=== PATIENT | female | born 1955 | race Caucasian/White ===

== ENCOUNTER 2020-05-11 13:41 | Inpatient (IN) ==
[2020-05-11] MEDS ORDERED: SODIUM CHLORIDE 0.9% 1000ML 1,000 ML IV ONE (14:03)
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
[2020-05-11 14:55] LABS: Basophils # (auto) 0.02 K/uL (0-0.2); Basophils % (auto) 0.1 %; Eosinophils # (auto) 0.04 K/uL (0-0.5); Eosinophils % (auto) 0.3 %; Hematocrit (blood only) 39.1 % (37-47); Hemoglobin 13.1 g/dL (12.0-16.0); Immature Granulocytes # (auto) 0.06 K/uL (0.00-0.02); Immature Granulocytes % (auto) 0.4 %; Lymphocytes # (auto) 1.08 K/uL (1.2-3.4); Lymphocytes % (auto) 7.7 %; Mean Corpuscular Hemoglobin 30.6 pg (25-34); Mean Corpuscular Hgb Conc 33.5 g/dL (32-36); Mean Corpuscular Volume 91.4 fL (80-100); Mean Platelet Volume 8.9 fL (7.4-10.4); Monocytes # (auto) 1.04 K/uL (0.11-0.59); Monocytes % (auto) 7.4 %; Neutrophils # (auto) 11.85 K/uL (1.4-6.5); Neutrophils % (auto) 84.1 %; Platelet Count 384 K/uL (130-400); RDW Coefficient of Variation 12.9 % (11.5-14.5); Red Blood Count 4.28 M/uL (4.2-5.4); White Blood Count 14.09 K/uL (4.8-10.8)
[2020-05-11 15:07] LABS: Partial Thromboplastin Ratio 0.8; Partial Thromboplastin Time 22.7 Seconds (21.0-31.0); Prothrombin Time 10.6 Seconds (9.0-12.0)
[2020-05-11 15:16] LABS: Alanine Aminotransferase 22 U/L (12-78); Albumin Level 3.3 gm/dl (3.4-5.0); Aspartate Aminotransferase 13 U/L (15-37); BUN Creatinine Ratio 40.2 (10-20); Blood Urea Nitrogen 39 mg/dl (7-18); Calcium 9.1 mg/dl (8.5-10.1); Carbon Dioxide 26 mmol/L (21-32); Chloride 102 mmol/L (98-107); Creatinine Clr Calc Pharmacy 44.5 ml/min; Est GFR (Non-African American) 60.4; Glucose 103 mg/dl (70-99); Lipase 197 U/L (73-393); Potassium 4.7 mmol/L (3.5-5.1); Sodium 134 mmol/L (136-145)
[2020-05-11 15:21] LABS: Albumin Globulin Ratio 0.8 (0.9-2); Alkaline Phosphatase 97 U/L (45-117); Bilirubin,Total 0.4 mg/dl (0.2-1); Total Protein 7.3 gm/dl (6.4-8.2); Troponin I < 0.015 ng/ml (0-0.045)
--- NOTE | 2020-05-11 15:33 | Electrocardiogram Report ---
Test Reason : Blood Pressure : / mmHG Vent. Rate : 080 BPM Atrial Rate : 080 BPM P-R Int : 172 ms QRS Dur : 072 ms QT Int : 380 ms P-R-T Axes : 089 072 086 degrees QTc Int : 438 ms Poor data quality, interpretation may be adversely affected Normal sinus rhythm Normal ECG No previous ECGs available Confirmed by Moshe Hickey ([id number]) on 05/11/2020 3:32:47 PM Referred By: REFERRED SELF Confirmed By:Mumtaz Hickey
[2020-05-11 16:40] LABS: Appearance Urine Clear (Clear); Bilirubin Urine Negative (Negative); Blood Urine Negative (Negative); Color Urine Yellow; Glucose Urine UA Negative (Negative); Ketones Urine Trace (Negative); Leukocyte Esterase Urine Negative (Negative); Nitrite Urine Negative (Negative); Protein Urine Negative (Negative); Specific Gravity Urine 1.018 (1.000-1.030); Urobilinogen Urine Negative (Negative); pH Urine 5.5 (4.5-7.5)
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
--- NOTE | 2020-05-11 22:11 | History & Physical Report ---
Date of Service May 11, 2020 Assessment & Plan (1) Generalized weakness: Generalized weakness/ambulatory dysfunction/frequent falls- No abnormalities noted on imaging or on laboratories. Consult PT/OT Patient has had decreased oral intake We will likely need an inpatient rehab stay Present on Admission?: Yes (2) Ambulatory dysfunction: See above Present on Admission?: Yes (3) Dehydration: Placed on NSS + KCl 20 mEq per hour Present on Admission?: Yes (4) COPD (chronic obstructive pulmonary disease): Continue usual inhalers Breo Ellipta and Spiriva Present on Admission?: Yes (5) Hypertension: Continue diltiazem HCl with hold parameters. Hold irbesartan and spironolactone Present on Admission?: Yes (6) Anxiety with depression: Continue clonazepam and paroxetine Present on Admission?: Yes History of Present Illness Chief Complaint: The patient presents to the emergency department with complaint of several falls over the past 2 weeks, and generalized weakness, especially weak in her legs. Primary Care Provider: NO PCP The patient is a 65-year-old female with a past medical history including anxiety, hypertension, COPD, and depression who presents to the ED with symptoms as noted above. She denies any history of head trauma or any specific joint injuries with her frequent falls. Work-up in the emergency department including CT scans of head, face and cervical spine all of which were negative. Chest x-ray is consistent with COPD and mild bibasilar interstitial lung disease. Allergies Allergy/AdvReac Type Severity Reaction Status Date / Time No Known Allergies Allergy Unverified 05/11/20 15:30 Home Medications Medication Instructions Recorded Confirmed Type albuterol sulfate [Ventolin HFA] 2 puff INHALATION Q6 PRN 05/11/20 05/11/20 History clonazepam [Klonopin] 0.25 mg PO TID 05/11/20 05/11/20 History diltiazem HCl 240 mg PO DAILY 05/11/20 05/11/20 History fluticasone furoate-vilanterol 1 ea INHALATION DAILY 05/11/20 05/11/20 History [Breo Ellipta] irbesartan 150 mg PO DAILY 05/11/20 05/11/20 History paroxetine HCl 10 mg PO HS 05/11/20 05/11/20 History spironolactone 25 mg PO DAILY 05/11/20 05/11/20 History tiotropium bromide [Spiriva 2 puff INHALATION QAM 05/11/20 05/11/20 History Respimat] Past Med/Surg History Medical History (Updated 05/11/20 @ 23:59 by Riley David MD) Anxiety with depression COPD (chronic obstructive pulmonary disease) Hypertension Social History Smoking Status: Former smoker Hx Alcohol Use: No Hx Substance Use: No Preferred Language: Belarusian Communication Ability: Effective Captain Of Guards Required: No Beliefs That Will Affect Care: None Current Living Situation: Other Current Living Situation Comment: Friend Feels Safe at Home: Yes Safety Concerns: Feels Safe At This Time Assistive Devices: Oxygen - Continuous and Walker Review of Systems Review of Systems: The patient denies chest pain, palpitations, shortness of breath, dyspnea on exertion, cough, lower extremity swelling, sore throat, fevers, chills, sweats, nausea, vomiting, diarrhea , constipation, abdominal pain, pelvic pain, blood in urine or stool, dysuria, urinary frequency or urgency, memory loss, loss of consciousness, rash, abnormal bruising or bleeding, focal weakness, numbness or tingling in arms or legs, generalized arthralgias or myalgias, back or neck pain, or night sweats. The review of systems is otherwise negative other than for that already noted above, and at least 10 systems have been reviewed. Physical Exam Physical Exam: The patient is awake, alert and oriented 3, well developed and well nourished, bruises around eyes and maxillary ridge bilaterally, lying in bed and in no acute distress. HEENT--PERRL, EOMI, mucous membranes and oropharynx dry. Neck--supple. No JVD. No bruits. Thyroid normal, trachea midline, no adenopathy. Heart--normal S1 and S2. No murmurs, rubs or gallops. Lungs--clear bilaterally, no respiratory distress, no accessory muscle use. Abdomen--normal bowel sounds and soft. Nontender. Nondistended, no hernias or masses, no organomegaly. Extremities--no cyanosis or clubbing. No edema. Dermatologic--normal skin turgor, normal color, no abnormal lymph nodes, no rash. Neurologic--cranial nerves II through XII grossly intact. Rheumatologic--normal range of motion. Psychiatric--normal affect. Results & Data Results & Data ([facility]) Vital Signs (Past 12 Hours) Vital Signs Temp Pulse Pulse Resp BP BP Pulse Ox 05/11/20 22:05 86 20 117/79 96 05/11/20 20:37 94 H 20 115/80 96 05/11/20 19:05 94 H 20 115/80 100 05/11/20 16:10 86 23 100 05/11/20 16:01 77 21 100 05/11/20 16:00 75 21 120/80 100 05/11/20 15:50 79 22 100 05/11/20 15:40 87 17 100 05/11/20 15:31 79 26 H 100 05/11/20 15:30 81 19 127/81 100 05/11/20 15:20 77 20 100 05/11/20 15:10 80 19 100 05/11/20 15:01 82 24 100 05/11/20 15:00 77 17 123/78 100 05/11/20 14:50 81 24 99 05/11/20 14:49 85 25 H 128/78 99 05/11/20 14:40 92 H 16 98 05/11/20 14:30 82 26 H 99 05/11/20 14:20 86 23 99 05/11/20 14:10 91 H 26 H 99 05/11/20 14:00 97.9 F 93 H 24 125/86 98 05/11/20 13:59 94 H 27 H 98 05/11/20 13:45 96 H 24 125/86 98 Laboratory Results Laboratory Results WBC 14.09 K/uL (4.8-10.8) H 05/11/20 14:46 RBC 4.28 M/uL (4.2-5.4) 05/11/20 14:46 Hgb 13.1 g/dL (12.0-16.0) 05/11/20 14:46 Hct 39.1 % (37-47) 05/11/20 14:46 MCV 91.4 fL (80-100) 05/11/20 14:46 MCH 30.6 pg (25-34) 05/11/20 14:46 MCHC 33.5 g/dL (32-36) 05/11/20 14:46 RDW Std Deviation 43.0 fL (36.4-46.3) 05/11/20 14:46 RDW Coeff of Artie 12.9 % (11.5-14.5) 05/11/20 14:46 Plt Count 384 K/uL (130-400) 05/11/20 14:46 MPV 8.9 fL (7.4-10.4) 05/11/20 14:46 Immature Gran % (Auto) 0.4 % 05/11/20 14:46 Neut % (Auto) 84.1 % 05/11/20 14:46 Lymph % (Auto) 7.7 % 05/11/20 14:46 Bledsoe % (Auto) 7.4 % 05/11/20 14:46 Eos % (Auto) 0.3 % 05/11/20 14:46 Baso % (Auto) 0.1 % 05/11/20 14:46 Neut # (Auto) 11.85 K/uL (1.4-6.5) H 05/11/20 14:46 Lymph # (Auto) 1.08 K/uL (1.2-3.4) L 05/11/20 14:46 Bledsoe # (Auto) 1.04 K/uL (0.11-0.59) H 05/11/20 14:46 Eos # (Auto) 0.04 K/uL (0-0.5) 05/11/20 14:46 Baso # (Auto) 0.02 K/uL (0-0.2) 05/11/20 14:46 Immature Gran # (Auto) 0.06 K/uL (0.00-0.02) H 05/11/20 14:46 PT 10.6 Seconds (9.0-12.0) 05/11/20 14:46 INR 1.0 (0.9-1.1) 05/11/20 14:46 APTT 22.7 Seconds (21.0-31.0) 05/11/20 14:46 PTT Ratio 0.8 05/11/20 14:46 Sodium 134 mmol/L (136-145) L 05/11/20 14:46 Potassium 4.7 mmol/L (3.5-5.1) 05/11/20 14:46 Chloride 102 mmol/L (98-107) 05/11/20 14:46 Carbon Dioxide 26 mmol/L (21-32) 05/11/20 14:46 Anion Gap 6.0 (3-11) 05/11/20 14:46 BUN 39 mg/dl (7-18) H 05/11/20 14:46 Creatinine 0.97 mg/dl (0.6-1.2) 05/11/20 14:46 Est Cr Clr Drug Dosing 44.5 ml/min 05/11/20 14:46 Est GFR ( Amer) 70.0 05/11/20 14:46 Est GFR (Non-Af Amer) 60.4 05/11/20 14:46 BUN/Creatinine Ratio 40.2 (10-20) H 05/11/20 14:46 Glucose 103 mg/dl (70-99) H 05/11/20 14:46 Calcium 9.1 mg/dl (8.5-10.1) 05/11/20 14:46 Total Bilirubin 0.4 mg/dl (0.2-1) 05/11/20 14:46 AST 13 U/L (15-37) L 05/11/20 14:46 ALT 22 U/L (12-78) 05/11/20 14:46 Alkaline Phosphatase 97 U/L (45-117) 05/11/20 14:46 Troponin I < 0.015 ng/ml (0-0.045) 05/11/20 14:46 Total Protein 7.3 gm/dl (6.4-8.2) 05/11/20 14:46 Albumin 3.3 gm/dl (3.4-5.0) L 05/11/20 14:46 Globulin 4.0 gm/dl (2.5-4.0) 05/11/20 14:46 Albumin/Globulin Ratio 0.8 (0.9-2) L 05/11/20 14:46 Lipase 197 U/L (73-393) 05/11/20 14:46 Urine Color Yellow 05/11/20 14:46 Urine Appearance Clear (Clear) 05/11/20 14:46 Urine pH 5.5 (4.5-7.5) 05/11/20 14:46 Ur Specific [place] 1.018 (1.000-1.030) 05/11/20 14:46 Urine Protein Negative (Negative) 05/11/20 14:46 Urine Glucose (UA) Negative (Negative) 05/11/20 14:46 Urine Ketones Trace (Negative) H 05/11/20 14:46 Urine Blood Negative (Negative) 05/11/20 14:46 Urine Nitrite Negative (Negative) 05/11/20 14:46 Urine Bilirubin Negative (Negative) 05/11/20 14:46 Urine Urobilinogen Negative (Negative) 05/11/20 14:46 Ur Leukocyte Esterase Negative (Negative) 05/11/20 14:46 COVID-19 Eval Order Covid19 IDNow On license of [facility] 05/11/20 18:37 SARS-CoV-2, RNA, NAAT NEGATIVE (NEGATIVE) 05/11/20 18:37 Diagnostic Findings [facility], [phone] CT Scan Report Patient: ANT OZUNA IAdmit Date: 05/11/20MR#: [id number]: [address] AAcct ID:[id number]: Date: [address] [place] [address] Zip: [place], [place] [address]Zak: 65Location: EDSex: FRoom/Bed:Att Phy:Diagnosis: WEAKNESSPri Phy: PCP,NOService Date: 05/11/20Fam Phy:Interpreting Phy: Fracisco Asher MDAdmit Phy: Ordering Phy: Hardy Eaton DO cc: ~ CT OF THE CERVICAL SPINE CLINICAL HISTORY: Neck pain status post trauma COMPARISON STUDY: No previous studies for comparison. CT DOSE: 1846.72 mGy.cm TECHNIQUE: CT scan of the cervical spine was performed from the skull base to the thoracic inlet. Images are reviewed in the axial, sagittal, and coronal planes. IV contrast was not administered for this examination. A dose lowering technique was utilized adhering to the principles of ALARA. FINDINGS: The visualized portions of the lung apices reveal no evidence of pneumothorax. The prevertebral soft tissues are normal. No fractures or subluxations are visualized. There is straightening of normal cervical lordosis. There are multilevel degenerative changes. There are C1 sclerotic foci statistically representing bone islands. IMPRESSION: No evidence of acute fracture or traumatic subluxation. ACT 112: Negative or not required by law. Electronically signed by: Fracisco Asher M.D. 05/11/2020 4:48 PM Dictated: 05/11/20 1645Transcribed: 05/11/20 1647 [facility], [phone] XRay Report Patient: ANT OZUNA Date: 05/11/20MR#: [id number]: [address] [facility] [address] AAcct ID:[id number]: Date: [address] [place] [address] Zip: [place] [address]Ipv: [id number]: EDSex: FRoom/Bed:Att Phy:Diagnosis: WEAKNESSPri Phy: PCP,NOService Date: 05/11/20Fam Phy:Interpreting Phy: Fracisco Asher MDAdmit Phy: Ordering Phy: Hardy Eaton DO cc: ~ XR chest 1V portable CLINICAL HISTORY: Atypical chest pain TRAUMA, CONFUSION, WEAKNESS COMPARISON STUDY: No previous studies for comparison. FINDINGS: The heart is normal in size. The patient is hyperinflated. There is pulmonary emphysema. There is mild interstitial thickening at the lung bases a finding which in part be due to pulmonary vascular redistribution given the upper lobe emphysema there are no large pleural effusions. There is no pneumothorax. Arthritic changes are present within the right shoulder.[ IMPRESSION: 1. Pulmonary emphysema 2. No evidence of pneumothorax 3. Mild basilar interstitial thickening ACT 112: Negative or not required by law. Electronically signed by: Fracisco Asher M.D. 05/11/2020 2:17 PM Dictated: 05/11/20 141Transcribed: 05/11/20 141 [facility], [phone] CT Scan Report Patient: ANT OZUNA Date: 05/11/20MR#: [id number]: [address] [facility] [address] AAcct ID:[id number]: Date: [address] [place] [address] Zip: [place] [address]Rma: [id number]: EDSex: FRoom/Bed:Att Phy:Diagnosis: WEAKNESSPri Phy: PCP,NOService Date: 05/11/20Fam Phy:Interpreting Phy: Diego Almodovar MDAdmit Phy: Ordering Phy: Hardy Eaton DO cc: ~ MAXILLOFACIAL CT WITHOUT CONTRAST CLINICAL HISTORY: facial trauma COMPARISON STUDY: None. TECHNIQUE: A maxillofacial CT was performed without IV contrast. Coronal and sagittal reformats were viewed. Automated exposure control was utilized for the study. A dose lowering technique was utilized adhering to the principles of ALARA. FINDINGS: Globes are intact. There is no retrobulbar hematoma. Alignment of the temporomandibular joints is anatomic. No acute facial fracture is identified. Orbital floors are intact. No skull base fracture is identified. The head CT will be reported separately. IMPRESSION: No acute facial fracture. ACT 112: Negative or not required by law. Electronically signed by: Diego Almodovar M.D. 05/11/2020 4:51 PM Dictated: 05/11/201646Transcribed: 05/11/201646 [facility], [phone] CT Scan Report Patient: ANT OZUNA IAdmit Date: 05/11/20MR#: [id number]: [address] [facility] [address] AAcct ID:[id number]: Date: [address] [place] [address] Zip: [place], [place] [address]Unv: 65Location: EDSex: FRoom/Bed:Att Phy:Diagnosis: WEAKNESSPri Phy: PCP,NOService Date: 05/11/20Fa Phy:Interpreting Phy: Fracisco Asher MDAdmit Phy: Ordering Phy: Hardy Eaton DO cc: ~ CT head/brain wo con CLINICAL HISTORY: Head pain status post trauma COMPARISON STUDY: No previous studies for comparison. TECHNIQUE: Axial CT of the brain is performed from the vertex to the skull base. IV contrast was not administered for this examination. A dose lowering technique was utilized adhering to the principles of ALARA. CT DOSE: FINDINGS: No intra or extra-axial mass lesions are visualized. There is no CT evidence of acute cortical infarction. There is no evidence of midline shift. There is no acute hemorrhage. No calvarial fractures are visualized. There are minor white matter hypodensities likely on a small vessel basis. There is no evidence of pathologic ventricular dilatation. There is no evidence of acute sinusitis. C1 sclerotic foci while nonspecific likely represent bone islands IMPRESSION: No acute intracranial findings ACT 112: Negative or not required by law. Electronically signed by: Fracisco Asher M.D. 05/11/2020 4:47 PM Dictated: 05/11/202Transcribed: 05/11/20 1644 Code Status & VTE Plan Code Status Full code VTE Prophylaxis Plan VTE Prophylaxis will be ordered: Yes PG Care Time/CCT Total # of Minutes Spent Total Time Spent with Patient: Total time spent is greater than 50% in coordination of care (as documented) at patient's floor/unit and/or counseling patient: Coding Level of Care Code 35386 OBS Care - Level 3 Diagnoses Generalized weakness R53.1 Ambulatory dysfunction R26.2 Dehydration E86.0 COPD (chronic obstructive pulmonary disease) J44.9 Hypertension I10 Anxiety with depression F41.8
[2020-05-12] MEDS ORDERED: ONDANSETRON INJ 2 MG/ML 2 ML VIAL IV PRN (00:47)
[2020-05-12] MEDS ORDERED: MAGNESIUM HYDROXIDE SUSP 30 ML UDC PO PRN (00:47)
[2020-05-12] MEDS ORDERED: ALUMINUM/MAGNESIUM SUSP 30 ML UDC PO PRN (00:47)
[2020-05-12] MEDS ORDERED: ACETAMINOPHEN 325 MG TAB PO PRN (00:47)
[2020-05-12] MEDS ORDERED: NSS + 20MEQ KCL 20 MEQ/1,000 ML BAG IV SCH (01:00)
[2020-05-12] MEDS: HEPARIN SOD 5,000 UNIT/0.5 ML VIAL SQ SCH ×2 (08:08→20:52)
[2020-05-12] MEDS: clonazePAM 0.25 MG TAB PO SCH ×3 (08:13→20:46)
[2020-05-12] MEDS: IRBESARTAN 150 MG TAB PO SCH (08:20)
[2020-05-12] MEDS: FLUTICASONE/VILANTEROL 200/25MCG 14 PUFFS/INHALER INH SCH (08:28)
[2020-05-12] MEDS: UMECLIDINIUM BROMIDE 62.5MCG/BLISTER 7 PUFFS/INHALER INH SCH (08:28)
[2020-05-12] MEDS ORDERED: Nursing to Pharmacy Communication SCH (08:30)
[2020-05-12] MEDS ORDERED: dilTIAZem HCL 240 MG CAPCR PO SCH (09:00)
--- NOTE | 2020-05-12 09:16 | Hospitalist Progress Note ---
Date of Service May 12, 2020 Assessment & Plan (1) Generalized weakness: Admitted for generalized weakness/ambulatory dysfunction/frequent falls in setting of poor intake and lack of self care. Son called EMS as patient unable to care for herself. Lives with roommate recently d/c on 302 and she states helps her at home No abnormalities noted on imaging or on laboratories. IVF NS @100cc/hr for dehydration, improved from admission Intake improved while inpatient TSH wnl Lyme negative. CK wnl 33 UA without evidence of infection WBC trending down, patient has been afebrile. No s/sx infection B12 low normal -- place on replacement PT/OT consulted - PT with rec for SNF. Alerted CM. Patient agreeable to [facility] but will await further eval (2) Ambulatory dysfunction: See above (3) Dehydration: IVF as above Bun/cr improving but still elevated continue to hold irbesartan but resumed spironolactone given elevated BP this morning BMP in AM (4) COPD (chronic obstructive pulmonary disease): Continue usual inhalers Breo Ellipta and Spiriva 99% on 2L -- patient on 2L chronically at baseline No respiratory issues at this time CXR without acute process Continue to monitor (5) Hypertension: Continue diltiazem HCl with hold parameters. Hold irbesartan as above for dehydration Spironolactone resumed for BP 145/88 Continue to monitor (6) Anxiety with depression: Continue clonazepam and paroxetine States stable at this time Hyponatremia Na 132 on Am labs IVF as above BMP in AM DVT Prophylaxis Heparin SQ Dispo: continued inpatient stay changed to full admission likely will need SNF at discharge Admission and Anticipated Discharge Date Admission Date: May 11, 2020 Subjective Patient evaluated around lunch. Tolerating diet as ordered. Had fall about a weak ago and hit her head. CT without acute findings. She notes that she has a roommate that was discharged on 302 and could help her at home, but we discussed safety given repeated falls and wound benefit from short term rehab. Discussed will have CM stop by and provide options for various locations prior to sending referral. Has not been seen by PT/OT yet. She notes she had not been eating or drinking much prior to admission, and she notes this was primarily related to access to food/water. She then got further dehydrated and noted weakness in her legs. She has been pushing fluids. Her IV is infiltrated currently and nursing to replace. On chronic O2 at 2 L and wears O2 via NC at night with humidified oxygen. No fevers, chills, chest pain, shortness of breath, cough, change in sputum color, nausea, vomiting, increased anxiety or other problem reported. No headache or visual changes. Will continue her diltiazem which she takes in the afternoon and already ordered. Will also resume her spironolactone later today for elevated BP and improvement of dehydration on labs, however will hold her irbesartan still given still slightly dehydrated. Questions/concerns addressed at this time. Review of Systems Review of Systems: All systems reviewed & are unremarkable except as noted in HPI & below Physical Exam Constitutional: well developed, + ill appearing (chronically ill appear, hair disheveled, b/l bruising to maxillary ridge) and comfortable; no acute distress Eyes: + anicteric sclerae and PERRL ENMT: dry mm Neck: normal visual inspection and trachea midline Respiratory: normal respiratory effort and able to speak in complete sentences; no respiratory distress, no labored breathing and no cough Auscultation: + diminished lung sounds (throughout) and + wheezes (faint, posterior); no crackles Cardiovascular: Rate/Rhythm: regular rate and regular rhythm Vessels: no JVD Extremities: no edema Gastrointestinal (Abdomen): normal bowel sounds, soft, nontender, no hepatosplenomegaly Musculoskeletal: moves all extremities Skin: cool, dry Neurologic: patellar DTR's 2+ bilat, sensation intact and PERRL, EOMI, accommodation nl, no face palsy, no dysarthria Psychiatric: Orientation: alert and oriented x 3 Lymphatic: no cervical or axillary lymphadenopathy Results & Data Results & Data ([facility]) Vital Signs (Past 12 Hours) Vital Signs Temp Pulse Pulse Resp BP Pulse Ox 05/12/20 07:00 36.5 C 93 H 16 145/88 H 99 05/11/20 23:47 36.2 C L 88 16 137/90 97 05/11/20 23:19 82 20 110/71 94 05/11/20 22:05 86 20 117/79 96 Laboratory Results 05/12/20 05/12/20 05/12/20 Range/Units 13:07 13:07 13:07 WBC (4.8-10.8) K/uL RBC (4.2-5.4) M/uL Hgb (12.0-16.0) g/dL Hct (37-47) % MCV (80-100) fL MCH (25-34) pg MCHC (32-36) g/dL RDW Std Deviation (36.4-46.3) fL RDW Coeff of Artie (11.5-14.5) % Plt Count (130-400) K/uL MPV (7.4-10.4) fL Immature Gran % (Auto) % Neut % (Auto) % Lymph % (Auto) % Bowie % (Auto) % Eos % (Auto) % Baso % (Auto) % Neut # (Auto) (1.4-6.5) K/uL Lymph # (Auto) (1.2-3.4) K/uL Bowie # (Auto) (0.11-0.59) K/uL Eos # (Auto) (0-0.5) K/uL Baso # (Auto) (0-0.2) K/uL Immature Gran # (Auto) (0.00-0.02) K/uL Sodium (136-145) mmol/L Potassium (3.5-5.1) mmol/L Chloride (98-107) mmol/L Carbon Dioxide (21-32) mmol/L Anion Gap (3-11) BUN (7-18) mg/dl Creatinine (0.6-1.2) mg/dl Est Cr Clr Drug Dosing ml/min Est GFR ( Amer) Est GFR (Non-Af Amer) BUN/Creatinine Ratio (10-20) Glucose (70-99) mg/dl Calcium (8.5-10.1) mg/dl Total Bilirubin (0.2-1) mg/dl AST (15-37) U/L ALT (12-78) U/L Alkaline Phosphatase (45-117) U/L Lactate Dehydrogenase 178 (84-246) U/L Total Creatine Kinase (26-192) U/L Total Protein (6.4-8.2) gm/dl Albumin (3.4-5.0) gm/dl Globulin (2.5-4.0) gm/dl Albumin/Globulin Ratio (0.9-2) Vitamin B12 210 (193-986) pg/ml TSH 1.050 (0.300-4.500) uIu/ml Urine Color Urine Appearance (Clear) Urine pH (4.5-7.5) Ur Specific Osborn (1.000-1.030) Urine Protein (Negative) Urine Glucose (UA) (Negative) Urine Ketones (Negative) Urine Blood (Negative) Urine Nitrite (Negative) Urine Bilirubin (Negative) Urine Urobilinogen (Negative) Ur Leukocyte Esterase (Negative) Lyme Disease IgG Ab (Negative) Lyme Disease IgM Ab (Negative) COVID-19 Eval Order SARS-CoV-2, RNA, NAAT (NEGATIVE) 05/12/20 05/12/20 05/12/20 Range/Units 08:44 08:44 08:44 WBC 13.08 H (4.8-10.8) K/uL RBC 4.18 L (4.2-5.4) M/uL Hgb 12.9 (12.0-16.0) g/dL Hct 38.4 (37-47) % MCV 91.9 (80-100) fL MCH 30.9 (25-34) pg MCHC 33.6 (32-36) g/dL RDW Std Deviation 43.2 (36.4-46.3) fL RDW Coeff of Artie 12.8 (11.5-14.5) % Plt Count 384 (130-400) K/uL MPV 9.2 (7.4-10.4) fL Immature Gran % (Auto) 0.3 % Neut % (Auto) 88.2 % Lymph % (Auto) 6.7 % Bowie % (Auto) 4.1 % Eos % (Auto) 0.5 % Baso % (Auto) 0.2 % Neut # (Auto) 11.55 H (1.4-6.5) K/uL Lymph # (Auto) 0.87 L (1.2-3.4) K/uL Bowie # (Auto) 0.53 (0.11-0.59) K/uL Eos # (Auto) 0.06 (0-0.5) K/uL Baso # (Auto) 0.03 (0-0.2) K/uL Immature Gran # (Auto) 0.04 H (0.00-0.02) K/uL Sodium 132 L (136-145) mmol/L Potassium 4.8 (3.5-5.1) mmol/L Chloride 102 (98-107) mmol/L Carbon Dioxide 25 (21-32) mmol/L Anion Gap 5.0 (3-11) BUN 27 H (7-18) mg/dl Creatinine 0.69 (0.6-1.2) mg/dl Est Cr Clr Drug Dosing 62.6 ml/min Est GFR ( Amer) 104.4 Est GFR (Non-Af Amer) 90.1 BUN/Creatinine Ratio 38.8 H (10-20) Glucose 108 H (70-99) mg/dl Calcium 9.1 (8.5-10.1) mg/dl Total Bilirubin 0.5 (0.2-1) mg/dl AST 12 L (15-37) U/L ALT 21 (12-78) U/L Alkaline Phosphatase 91 (45-117) U/L Lactate Dehydrogenase (84-246) U/L Total Creatine Kinase 33 (26-192) U/L Total Protein 6.9 (6.4-8.2) gm/dl Albumin 3.1 L (3.4-5.0) gm/dl Globulin 3.7 (2.5-4.0) gm/dl Albumin/Globulin Ratio 0.8 L (0.9-2) Vitamin B12 (193-986) pg/ml TSH (0.300-4.500) uIu/ml Urine Color Urine Appearance (Clear) Urine pH (4.5-7.5) Ur Specific Osborn (1.000-1.030) Urine Protein (Negative) Urine Glucose (UA) (Negative) Urine Ketones (Negative) Urine Blood (Negative) Urine Nitrite (Negative) Urine Bilirubin (Negative) Urine Urobilinogen (Negative) Ur Leukocyte Esterase (Negative) Lyme Disease IgG Ab Negative (Negative) Lyme Disease IgM Ab Negative (Negative) COVID-19 Eval Order SARS-CoV-2, RNA, NAAT (NEGATIVE) 05/11/20 05/11/20 05/11/20 Range/Units 18:37 18:37 14:46 WBC (4.8-10.8) K/uL RBC (4.2-5.4) M/uL Hgb (12.0-16.0) g/dL Hct (37-47) % MCV (80-100) fL MCH (25-34) pg MCHC (32-36) g/dL RDW Std Deviation (36.4-46.3) fL RDW Coeff of Artie (11.5-14.5) % Plt Count (130-400) K/uL MPV (7.4-10.4) fL Immature Gran % (Auto) % Neut % (Auto) % Lymph % (Auto) % Bowie % (Auto) % Eos % (Auto) % Baso % (Auto) % Neut # (Auto) (1.4-6.5) K/uL Lymph # (Auto) (1.2-3.4) K/uL Bowie # (Auto) (0.11-0.59) K/uL Eos # (Auto) (0-0.5) K/uL Baso # (Auto) (0-0.2) K/uL Immature Gran # (Auto) (0.00-0.02) K/uL Sodium (136-145) mmol/L Potassium (3.5-5.1) mmol/L Chloride (98-107) mmol/L Carbon Dioxide (21-32) mmol/L Anion Gap (3-11) BUN (7-18) mg/dl Creatinine (0.6-1.2) mg/dl Est Cr Clr Drug Dosing ml/min Est GFR ( Amer) Est GFR (Non-Af Amer) BUN/Creatinine Ratio (10-20) Glucose (70-99) mg/dl Calcium (8.5-10.1) mg/dl Total Bilirubin (0.2-1) mg/dl AST (15-37) U/L ALT (12-78) U/L Alkaline Phosphatase (45-117) U/L Lactate Dehydrogenase (84-246) U/L Total Creatine Kinase (26-192) U/L Total Protein (6.4-8.2) gm/dl Albumin (3.4-5.0) gm/dl Globulin (2.5-4.0) gm/dl Albumin/Globulin Ratio (0.9-2) Vitamin B12 (193-986) pg/ml TSH (0.300-4.500) uIu/ml Urine Color Yellow Urine Appearance Clear (Clear) Urine pH 5.5 (4.5-7.5) Ur Specific Osborn 1.018 (1.000-1.030) Urine Protein Negative (Negative) Urine Glucose (UA) Negative (Negative) Urine Ketones Trace H (Negative) Urine Blood Negative (Negative) Urine Nitrite Negative (Negative) Urine Bilirubin Negative (Negative) Urine Urobilinogen Negative (Negative) Ur Leukocyte Esterase Negative (Negative) Lyme Disease IgG Ab (Negative) Lyme Disease IgM Ab (Negative) COVID[facility]19 Eval [facility] SARS-CoV-2, RNA, NAAT NEGATIVE (NEGATIVE) PG Care Time/CCT Total # of Minutes Spent Total Time Spent with Patient: Total time spent is greater than 50% in coordination of care (as documented) at patient's floor/unit and/or counseling patient: Coding Level of Care Code 88139 Subseq Hosp Care Lvl 2 Diagnoses Generalized weakness R53.1 Ambulatory dysfunction R26.2 Dehydration E86.0 COPD (chronic obstructive pulmonary disease) J44.9 Hypertension I10 Anxiety with depression F41.8
[2020-05-12 09:21] LABS: Basophils # (auto) 0.03 K/uL (0-0.2); Basophils % (auto) 0.2 %; Eosinophils # (auto) 0.06 K/uL (0-0.5); Eosinophils % (auto) 0.5 %; Hematocrit (blood only) 38.4 % (37-47); Hemoglobin 12.9 g/dL (12.0-16.0); Immature Granulocytes # (auto) 0.04 K/uL (0.00-0.02); Immature Granulocytes % (auto) 0.3 %; Lymphocytes # (auto) 0.87 K/uL (1.2-3.4); Lymphocytes % (auto) 6.7 %; Mean Corpuscular Hemoglobin 30.9 pg (25-34); Mean Corpuscular Hgb Conc 33.6 g/dL (32-36); Mean Corpuscular Volume 91.9 fL (80-100); Mean Platelet Volume 9.2 fL (7.4-10.4); Monocytes # (auto) 0.53 K/uL (0.11-0.59); Monocytes % (auto) 4.1 %; Neutrophils # (auto) 11.55 K/uL (1.4-6.5); Neutrophils % (auto) 88.2 %; Platelet Count 384 K/uL (130-400); RDW Coefficient of Variation 12.8 % (11.5-14.5); RDW Standard Deviation 43.2 fL (36.4-46.3); Red Blood Count 4.18 M/uL (4.2-5.4); White Blood Count 13.08 K/uL (4.8-10.8)
[2020-05-12 09:28] LABS: Albumin Level 3.1 gm/dl (3.4-5.0); BUN Creatinine Ratio 38.8 (10-20); Calcium 9.1 mg/dl (8.5-10.1); Creatinine Clr Calc Pharmacy 62.6 ml/min; Est GFR (African American) 104.4; Est GFR (Non-African American) 90.1; Potassium 4.8 mmol/L (3.5-5.1)
[2020-05-12 09:38] LABS: Albumin Globulin Ratio 0.8 (0.9-2); Bilirubin,Total 0.5 mg/dl (0.2-1); Globulin 3.7 gm/dl (2.5-4.0); Total Protein 6.9 gm/dl (6.4-8.2)
[2020-05-12 10:01] LABS: Lyme Ab IgG w/WB Rflx Negative (Negative); Lyme Ab IgM w/WB Rflx Negative (Negative)
[2020-05-12] MEDS: SODIUM CHLORIDE 0.9% 1000ML 1,000 ML IV SCH ×2 (10:10→20:51)
[2020-05-12] MEDS: dilTIAZem HCL 240 MG CAPCR PO SCH (15:53)
[2020-05-12] MEDS: SPIRONOLACTONE 25 MG TAB PO SCH (15:53)
[2020-05-12] MEDS: PARoxetine HCL 10 MG TAB PO SCH (20:46)
[2020-05-13 06:15] LABS: Basophils # (auto) 0.02 K/uL (0-0.2); Basophils % (auto) 0.1 %; Eosinophils # (auto) 0.12 K/uL (0-0.5); Eosinophils % (auto) 0.9 %; Hemoglobin 12.2 g/dL (12.0-16.0); Immature Granulocytes # (auto) 0.04 K/uL (0.00-0.02); Immature Granulocytes % (auto) 0.3 %; Lymphocytes # (auto) 0.75 K/uL (1.2-3.4); Lymphocytes % (auto) 5.6 %; Mean Corpuscular Hgb Conc 33.9 g/dL (32-36); Mean Corpuscular Volume 91.6 fL (80-100); Mean Platelet Volume 9.1 fL (7.4-10.4); Monocytes # (auto) 0.89 K/uL (0.11-0.59); Monocytes % (auto) 6.6 %; Neutrophils # (auto) 11.57 K/uL (1.4-6.5); Neutrophils % (auto) 86.5 %; Platelet Count 335 K/uL (130-400); RDW Coefficient of Variation 12.8 % (11.5-14.5); RDW Standard Deviation 43.4 fL (36.4-46.3); Red Blood Count 3.93 M/uL (4.2-5.4); White Blood Count 13.39 K/uL (4.8-10.8)
[2020-05-13] MEDS: SODIUM CHLORIDE 0.9% 1000ML 1,000 ML IV SCH ×2 (06:33→17:09)
[2020-05-13 06:52] LABS: BUN Creatinine Ratio 25.1 (10-20); Calcium 8.2 mg/dl (8.5-10.1); Creatinine Clr Calc Pharmacy 73.2 ml/min; Est GFR (African American) 109.9; Est GFR (Non-African American) 94.8
[2020-05-13] MEDS: UMECLIDINIUM BROMIDE 62.5MCG/BLISTER 7 PUFFS/INHALER INH SCH (08:23)
[2020-05-13] MEDS: FLUTICASONE/VILANTEROL 200/25MCG 14 PUFFS/INHALER INH SCH (08:23)
[2020-05-13] MEDS: HEPARIN SOD 5,000 UNIT/0.5 ML VIAL SQ SCH ×2 (08:24→20:25)
[2020-05-13] MEDS: SPIRONOLACTONE 25 MG TAB PO SCH (08:24)
[2020-05-13] MEDS: CYANOCOBALAMIN 500 MCG TABLET (VITAMIN B-12) PO SCH (08:25)
[2020-05-13] MEDS: ATENOLOL 50 MG TABLET PO SCH (08:25)
[2020-05-13] MEDS: IRBESARTAN 150 MG TAB PO SCH (08:25)
[2020-05-13] MEDS: clonazePAM 0.25 MG TAB PO SCH ×3 (08:31→20:25)
--- NOTE | 2020-05-13 08:37 | Hospitalist Progress Note ---
Date of Service May 13, 2020 Assessment & Plan (1) Generalized weakness: Admitted for generalized weakness/ambulatory dysfunction/frequent falls in setting of poor intake and lack of self care. Son called EMS as patient unable to care for herself. Lives with roommate recently d/c on 302 and she states helps her at home No abnormalities noted on imaging or on laboratories. IVF NS @100cc/hr for dehydration, improved from admission Intake improved while inpatient TSH wnl Lyme negative. CK wnl 33 UA without evidence of infection WBC trending down, patient has been afebrile. No s/sx infection B12 low normal -- place on replacement PT/OT consulted - PT with rec for SNF. Alerted CM. Patient agreeable to [facility] but will await further eval -- also will sent referals to [facility] Roommate previously diagnoses with cdiff and she does endorse diarrhea -- will check c.diff Continue IVF given decreased appetite CXR with infectious process, likely etiology for weakness/lack of appetite (2) Pneumonia: likely secondary to pneumonia on chronic O2 for COPD, 2-3L at home Reported worsening shortness of breath with ambulation and CXR repeated. WBC remains elevated 13.3k although afebrile CXR with interval development of mild bibasilar opacities favoring infectious process Placed on Azithromycin/Ceftriaxone Sputum culture if able to produce MRSA nasal swab to ensure no need for coverage for MRSA although no reported h istory of MRSA Duonebs prn Incentive spirometry (3) Ambulatory dysfunction: See above (4) Dehydration: IVF as above Bun/cr improved but will continue IVF given decreased appetite continue to hold irbesartan but resumed spironolactone given elevated BP this morning BMP in AM (5) COPD (chronic obstructive pulmonary disease): Continue usual inhalers Breo Ellipta and Spiriva 97% on 2L -- patient on 2L chronically at baseline No respiratory issues at this time CXR without acute process on admission, however given reported shortness of breath today, repeat obtained. Cover with azithro/rocephin as above. See under pneumonia Continue to monitor (6) Hypertension: Continue diltiazem HCl with hold parameters. Continued atenolol as previously on outpatient Hold irbesartan as above for dehydration Spironolactone resumed BP 131/84 Continue to monitor (7) Anxiety with depression: Continue clonazepam and paroxetine States stable at this time Hyponatremia Improved Na 135 IVF as above BMP in AM Toenail abnormality (all toes with fungal appearance/overgrowth and curling) -- was to follow up with podiatry outpatient but cancelled x 3 --- likely contributing to repeat falls (CT head negative) Will consult podiatry for tomorrow will need f/u outpatient for continued mangament DVT Prophylaxis Heparin SQ Dispo: continued inpatient stay changed to full admission treating for pneumonia likely will need SNF at discharge. CM following Admission and Anticipated Discharge Date Admission Date: May 12, 2020 Subjective Patient evaluated this morning. Feels better than yesterday but having some shortness of breath going to the bathroom. Reported multiple loose yellow stools. Recently roommate + for cdiff and we will test her. No redness/pain, fever, chills, chest pain reported. No abdominal pain, nausea or vomiting. Increased oral intake. Scared about leaving today, but discussed keeping again overnight. She is unaware if WBC elevated chronically but has not reported any fevers. Will request most recent office notes from outpatient PCP. Discussed PT/OT recommendations for rehab-- she would like close to home in [place] but aware no visitation. Recs to be sent to [facility]. CM aware. Review of Systems Review of Systems: All systems reviewed & are unremarkable except as noted in HPI & below Physical Exam Constitutional: well developed, + ill appearing (chronically ill appear, hair disheveled, b/l bruising to maxillary ridge) and comfortable; no acute distress Eyes: + anicteric sclerae and PERRL ENMT: dry mm Neck: normal visual inspection and trachea midline Respiratory: normal respiratory effort and able to speak in complete sentences; no respiratory distress, no labored breathing and no cough Auscultation: + diminished lung sounds (throughout) and + crackles (bibasilar); no wheezes Cardiovascular: Rate/Rhythm: regular rate and regular rhythm Vessels: no JVD Extremities: no edema Gastrointestinal (Abdomen): normal bowel sounds, soft, nontender, no hepatosplenomegaly Musculoskeletal: no cyanosis or clubbing, extremities motor strength 5/5 Skin: multiple bruises/excoriations throughout from repeated falls no erythema/drainage noted crusting and elongated toenails, bilaterally with curling. non-tender to palpation Neurologic: patellar DTR's 2+ bilat, sensation intact and PERRL, EOMI, accommodation nl, no face palsy, no dysarthria Psychiatric: Orientation: alert and oriented x 3 (intermittent confusion/repeating herself) Lymphatic: no cervical or axillary lymphadenopathy Results & Data Results & Data ([facility]) Vital Signs (Past 12 Hours) Vital Signs Temp Pulse Resp BP Pulse Ox 05/13/20 07:43 36.5 C 97 H 22 131/84 97 05/12/20 23:09 36.5 C 84 16 117/78 98 Laboratory Results 05/13/20 05/13/20 05/12/20 Range/Units 05:53 05:53 13:07 WBC 13.39 H (4.8-10.8) K/uL RBC 3.93 L (4.2-5.4) M/uL Hgb 12.2 (12.0-16.0) g/dL Hct 36.0 L (37-47) % MCV 91.6 (80-100) fL MCH 31.0 (25-34) pg MCHC 33.9 (32-36) g/dL RDW Std Deviation 43.4 (36.4-46.3) fL RDW Coeff of Artie 12.8 (11.5-14.5) % Plt Count 335 (130-400) K/uL MPV 9.1 (7.4-10.4) fL Immature Gran % (Auto) 0.3 % Neut % (Auto) 86.5 % Lymph % (Auto) 5.6 % Denali % (Auto) 6.6 % Eos % (Auto) 0.9 % Baso % (Auto) 0.1 % Neut # (Auto) 11.57 H (1.4-6.5) K/uL Lymph # (Auto) 0.75 L (1.2-3.4) K/uL Denali # (Auto) 0.89 H (0.11-0.59) K/uL Eos # (Auto) 0.12 (0-0.5) K/uL Baso # (Auto) 0.02 (0-0.2) K/uL Immature Gran # (Auto) 0.04 H (0.00-0.02) K/uL Sodium 135 L (136-145) mmol/L Potassium 4.0 D (3.5-5.1) mmol/L Chloride 104 (98-107) mmol/L Carbon Dioxide 25 (21-32) mmol/L Anion Gap 6.0 (3-11) BUN 15 (7-18) mg/dl Creatinine 0.59 L (0.6-1.2) mg/dl Est Cr Clr Drug Dosing 73.2 ml/min Est GFR ( Amer) 109.9 Est GFR (Non-Af Amer) 94.8 BUN/Creatinine Ratio 25.1 H (10-20) Glucose 79 (70-99) mg/dl Calcium 8.2 L (8.5-10.1) mg/dl Total Bilirubin (0.2-1) mg/dl AST (15-37) U/L ALT (12-78) U/L Alkaline Phosphatase (45-117) U/L Lactate Dehydrogenase (84-246) U/L Total Creatine Kinase (26-192) U/L Total Protein (6.4-8.2) gm/dl Albumin (3.4-5.0) gm/dl Globulin (2.5-4.0) gm/dl Albumin/Globulin Ratio (0.9-2) Vitamin B12 210 (193-986) pg/ml TSH (0.300-4.500) uIu/ml Lyme Disease IgG Ab (Negative) Lyme Disease IgM Ab (Negative) 05/12/20 05/12/20 05/12/20 Range/Units 13:07 13:07 08:44 WBC (4.8-10.8) K/uL RBC (4.2-5.4) M/uL Hgb (12.0-16.0) g/dL Hct (37-47) % MCV (80-100) fL MCH (25-34) pg MCHC (32-36) g/dL RDW Std Deviation (36.4-46.3) fL RDW Coeff of Artei (11.5-14.5) % Plt Count (130-400) K/uL MPV (7.4-10.4) fL Immature Gran % (Auto) % Neut % (Auto) % Lymph % (Auto) % Denali % (Auto) % Eos % (Auto) % Baso % (Auto) % Neut # (Auto) (1.4-6.5) K/uL Lymph # (Auto) (1.2-3.4) K/uL Denali # (Auto) (0.11-0.59) K/uL Eos # (Auto) (0-0.5) K/uL Baso # (Auto) (0-0.2) K/uL Immature Gran # (Auto) (0.00-0.02) K/uL Sodium 132 L (136-145) mmol/L Potassium 4.8 (3.5-5.1) mmol/L Chloride 102 (98-107) mmol/L Carbon Dioxide 25 (21-32) mmol/L Anion Gap 5.0 (3-11) BUN 27 H (7-18) mg/dl Creatinine 0.69 (0.6-1.2) mg/dl Est Cr Clr Drug Dosing 62.6 ml/min Est GFR ( Amer) 104.4 Est GFR (Non-Af Amer) 90.1 BUN/Creatinine Ratio 38.8 H (10-20) Glucose 108 H (70-99) mg/dl Calcium 9.1 (8.5-10.1) mg/dl Total Bilirubin 0.5 (0.2-1) mg/dl AST 12 L (15-37) U/L ALT 21 (12-78) U/L Alkaline Phosphatase 91 (45-117) U/L Lactate Dehydrogenase 178 (84-246) U/L Total Creatine Kinase 33 (26-192) U/L Total Protein 6.9 (6.4-8.2) gm/dl Albumin 3.1 L (3.4-5.0) gm/dl Globulin 3.7 (2.5-4.0) gm/dl Albumin/Globulin Ratio 0.8 L (0.9-2) Vitamin B12 (193-986) pg/ml TSH 1.050 (0.300-4.500) uIu/ml Lyme Disease IgG Ab (Negative) Lyme Disease IgM Ab (Negative) 05/12/20 05/12/20 Range/Units 08:44 08:44 WBC 13.08 H (4.8-10.8) K/uL RBC 4.18 L (4.2-5.4) M/uL Hgb 12.9 (12.0-16.0) g/dL Hct 38.4 (37-47) % MCV 91.9 (80-100) fL MCH 30.9 (25-34) pg MCHC 33.6 (32-36) g/dL RDW Std Deviation 43.2 (36.4-46.3) fL RDW Coeff of Artie 12.8 (11.5-14.5) % Plt Count 384 (130-400) K/uL MPV 9.2 (7.4-10.4) fL Immature Gran % (Auto) 0.3 % Neut % (Auto) 88.2 % Lymph % (Auto) 6.7 % Denali % (Auto) 4.1 % Eos % (Auto) 0.5 % Baso % (Auto) 0.2 % Neut # (Auto) 11.55 H (1.4-6.5) K/uL Lymph # (Auto) 0.87 L (1.2-3.4) K/uL Denali # (Auto) 0.53 (0.11-0.59) K/uL Eos # (Auto) 0.06 (0-0.5) K/uL Baso # (Auto) 0.03 (0-0.2) K/uL Immature Gran # (Auto) 0.04 H (0.00-0.02) K/uL Sodium (136-145) mmol/L Potassium (3.5-5.1) mmol/L Chloride (98-107) mmol/L Carbon Dioxide (21-32) mmol/L Anion Gap (3-11) BUN (7-18) mg/dl Creatinine (0.6-1.2) mg/dl Est Cr Clr Drug Dosing ml/min Est GFR ( Amer) Est GFR (Non-Af Amer) BUN/Creatinine Ratio (10-20) Glucose (70-99) mg/dl Calcium (8.5-10.1) mg/dl Total Bilirubin (0.2-1) mg/dl AST (15-37) U/L ALT (12-78) U/L Alkaline Phosphatase (45-117) U/L Lactate Dehydrogenase (84-246) U/L Total Creatine Kinase (26-192) U/L Total Protein (6.4-8.2) gm/dl Albumin (3.4-5.0) gm/dl Globulin (2.5-4.0) gm/dl Albumin/Globulin Ratio (0.9-2) Vitamin B12 (193-986) pg/ml TSH (0.300-4.500) uIu/ml Lyme Disease IgG Ab Negative (Negative) Lyme Disease IgM Ab Negative (Negative) Diagnostic Findings XR chest 1V portable CLINICAL HISTORY: Shortness of breath. COMPARISON STUDY: Chest radiograph May 11, 2020. FINDINGS: There is no pneumothorax or pleural effusion. There is severe emphysema. Mild right basilar opacity has developed. Mild interstitial thickening within the left lower lung has slightly increased. There is minimal left basilar opacity. Cardiac size is normal. Mediastinal contours are unremarkable. Patient is mildly rotated. IMPRESSION: 1. Interval development of mild bibasilar opacities which favor an infectious process. 2. Emphysema. PG Care Time/CCT Total # of Minutes Spent Total Time Spent with Patient: Total time spent is greater than 50% in coordination of care (as documented) at patient's floor/unit and/or counseling patient: Coding Level of Care Code 40950 Subseq Hosp Care Lvl 3 Diagnoses Generalized weakness R53.1 Pneumonia J18.9 Ambulatory dysfunction R26.2 Dehydration E86.0 COPD (chronic obstructive pulmonary disease) J44.9 Hypertension I10 Anxiety with depression F41.8
--- NOTE | 2020-05-13 12:35 | XRay Report ---
XR chest 1V portable CLINICAL HISTORY: Shortness of breath. COMPARISON STUDY: Chest radiograph May 11, 2020. FINDINGS: There is no pneumothorax or pleural effusion. There is severe emphysema. Mild right basilar opacity has developed. Mild interstitial thickening within the left lower lung has slightly increase d. There is minimal left basilar opacity. Cardiac size is normal. Mediastinal contours are unremarkab le. Patient is mildly rotated. IMPRESSION: 1. Interval development of mild bibasilar opacities which favor an infectious process. 2. Emphysema. ACT 112: Negative or not required by law. Electronically signed by: Diego Almodovar M.D. 05/13/2020 12:34 PM
[2020-05-13] MEDS ORDERED: AZITHROMYCIN 500 MG in DEXTROSE 5% 250 ML IV ONE (13:00)
[2020-05-13] MEDS: cefTRIAXone SODIUM 1,000 MG in DEXTROSE 5% 50 ML IV SCH (13:14)
[2020-05-13] MEDS ORDERED: ALBUT/IPRATROP 3MG/0.5MG NEB 3 ML VIAL NEB PRN (13:17)
[2020-05-13] MEDS ORDERED: VANCOMYCIN CONSULT ACTIVE PRN ×2 (14:53)
[2020-05-13] MEDS ORDERED: VANCOMYCIN HCL 1,250 MG in SODIUM CHLORIDE 0.9% 250 ML IV ONE (15:00)
--- NOTE | 2020-05-13 15:12 | Pharmacy Report ---
Pharmacy Abx Initial Consult - Date of Service May 13, 2020 - Pharmacy Dosing Scope Date of Consult: 05/13/20 Consultation requested by: Josselyn Oglesby PA-C Pharmacy is consulted to initiate Vancomycin IV dosing therapy, order appropriate labs and adjust drug dose/frequency. - Subjective The patient is a 65 year old F admitted on 05/12/20 15:49. - Objective Height: 5 ft 2 in Weight: 51.1 kg Vital Signs (Past 12hrs): Vital Signs Temp Pulse Resp BP Pulse Ox 05/13/20 07:43 36.5 C 97 H 22 131/84 97 Lab Results (24hrs): Laboratory Tests (24 Hours) 05/13/20 05/13/20 05:53 05:53 WBC 13.39 H Neut # (Auto) 11.57 H Creatinine 0.59 L Est Cr Clr Drug Dosing 73.2 - Risk Factors for Resistance * None - Assessment & Plan Assessment 65 year old F admitted on 05/11/20 secondary to generalized weakness * PMHx significant for COPD * Leukocytosis of 13.4k. Renal fxn improving (SCr down to 0.59). Afebrile. Requiring 2 L NC which is baseline. * Chest XR shows infectious process * Started on Azithromycin and Ceftriaxone. Then Vancomycin added today for posit burton MRSA nasal swab. Plan Vancomycin + Ceftriaxone + Azithromycin for treatment of Pneumonia Vancomycin IV * Patient meets criteria for vancomycin AUC dosing nomogram * AUC/VIJAY is the preferred PK/PD target for vancomycin * Target AUC/VIJAY = 400-600 * AUC guided dosing is effective and associated with decreased risk of nephrotoxicity * Trough level of 15 - 20 mcg/mL will correlate to AUC/VIJAY of 400 - 600. Ordered a trough for 05/15/20 Ceftriaxone * 1 g IV every 24 hours Azithromycin * 500 mg IV x 1 * 250 mg IV every 24 hours Pharmacy will continue to follow and will adjust dose/frequency as necessary. Thank you.
[2020-05-13] MEDS: dilTIAZem HCL 240 MG CAPCR PO SCH (15:32)
[2020-05-13] MEDS: PARoxetine HCL 10 MG TAB PO SCH (20:25)
[2020-05-13] MEDS: MUPIROCIN 2% OINT 22 GM TUBE EXT SCH (20:25)
[2020-05-14] MEDS: SODIUM CHLORIDE 0.9% 1000ML 1,000 ML IV SCH (03:21)
[2020-05-14] MEDS: VANCOMYCIN HCL 750 MG in SODIUM CHLORIDE 0.9% 250 ML IV SCH ×2 (03:21→16:43)
[2020-05-14 06:09] LABS: Basophils # (auto) 0.03 K/uL (0-0.2); Basophils % (auto) 0.3 %; Eosinophils # (auto) 0.16 K/uL (0-0.5); Eosinophils % (auto) 1.4 %; Hematocrit (blood only) 32.2 % (37-47); Hemoglobin 10.8 g/dL (12.0-16.0); Immature Granulocytes # (auto) 0.03 K/uL (0.00-0.02); Immature Granulocytes % (auto) 0.3 %; Lymphocytes # (auto) 1.29 K/uL (1.2-3.4); Lymphocytes % (auto) 11.3 %; Mean Corpuscular Hemoglobin 30.7 pg (25-34); Mean Corpuscular Hgb Conc 33.5 g/dL (32-36); Mean Corpuscular Volume 91.5 fL (80-100); Mean Platelet Volume 9.6 fL (7.4-10.4); Monocytes # (auto) 0.83 K/uL (0.11-0.59); Monocytes % (auto) 7.3 %; Neutrophils % (auto) 79.4 %; Platelet Count 302 K/uL (130-400); RDW Standard Deviation 43.7 fL (36.4-46.3); Red Blood Count 3.52 M/uL (4.2-5.4); White Blood Count 11.44 K/uL (4.8-10.8)
[2020-05-14 06:51] LABS: Albumin Globulin Ratio 0.7 (0.9-2); Albumin Level 2.3 gm/dl (3.4-5.0); BUN Creatinine Ratio 17.8 (10-20); Bilirubin,Total 0.3 mg/dl (0.2-1); Calcium 8.3 mg/dl (8.5-10.1); Creatinine Clr Calc Pharmacy 88.1 ml/min; Est GFR (African American) 116.8; Est GFR (Non-African American) 100.8; Globulin 3.1 gm/dl (2.5-4.0); Total Protein 5.4 gm/dl (6.4-8.2)
[2020-05-14] MEDS: FLUTICASONE/VILANTEROL 200/25MCG 14 PUFFS/INHALER INH SCH (08:21)
[2020-05-14] MEDS: HEPARIN SOD 5,000 UNIT/0.5 ML VIAL SQ SCH ×2 (08:22→20:39)
[2020-05-14] MEDS: MUPIROCIN 2% OINT 22 GM TUBE EXT SCH ×2 (08:22→20:37)
[2020-05-14] MEDS: UMECLIDINIUM BROMIDE 62.5MCG/BLISTER 7 PUFFS/INHALER INH SCH (08:22)
[2020-05-14] MEDS: SPIRONOLACTONE 25 MG TAB PO SCH (08:30)
[2020-05-14] MEDS: AZITHROMYCIN 250 MG in DEXTROSE 5% 250 ML IV SCH (08:30)
[2020-05-14] MEDS: clonazePAM 0.25 MG TAB PO SCH ×3 (08:30→20:37)
[2020-05-14] MEDS: CYANOCOBALAMIN 500 MCG TABLET (VITAMIN B-12) PO SCH (08:31)
[2020-05-14] MEDS: IRBESARTAN 150 MG TAB PO SCH (08:31)
[2020-05-14] MEDS: ATENOLOL 50 MG TABLET PO SCH (08:31)
--- NOTE | 2020-05-14 11:31 | Hospitalist Progress Note ---
Date of Service May 14, 2020 Assessment & Plan (1) COPD (chronic obstructive pulmonary disease): With exacerbation, in the setting of probable b/l basilar pneumonia. Significant wheezing on exam today. Add solumedrol 30mg IV BID along with scheduled bronchodilators. Cont home inhalers. Pulm toilet. Initial COVID neg at admission. Will repeat COVID today along with flu testing. (2) Pneumonia: b/l basilar on most recent cxr. procal checked - negative. [id number] is at risk of bacterial process and MRSA swab is +. pneumonia could be 2nd to MRSA. could be community-acquired. cont rocephin/zithromax for CAP coverage. cont vanco for MRSA coverage. supportive care. recheck COVID today. (3) Chronic respiratory failure with hypoxia: on continuous home O2, 2-3 L. 2nd to COPD. previous tobacco use - quit for many years. (4) Generalized weakness: Admitted for generalized weakness/ambulatory dysfunction/frequent falls in setting of poor intake and lack of self care. Son called EMS as patient unable to care for herself. Lives with roommate who was recently on a 302 petition - this is pt's main source of help at her home. Roommate also with MRSA infection or carriage. Weakness may have been 2nd to developing pneumonia. Rechecking COVID today. Check flu/RSV. B12 def could be contributing to weakness as well. PT, OT. Needs rehab. (5) Ambulatory dysfunction: See above B12 def could be contributing as well (6) Dehydration: Resolved w/ IVF fluids now d/c (7) Hypertension: Continue diltiazem, atenolol, and aldactone along with ARB. Controlled. (8) Anxiety with depression: Continue clonazepam and paroxetine (9) Fall: POA. Facial bruising, but no fractures fortunately. Hyponatremia, B12 def, pneumonia - all may have contributed to fall risk. PT, OT. (10) Hyponatremia: Resolved w/ IVF. BMP am. (11) DVT prophylaxis: Heparin 5000 BID. Dispo planning - needs rehab post-discharge. Admission and Anticipated Discharge Date Admission Date: May 12, 2020 Results & Data Results & Data ([facility]) Vital Signs (Past 12 Hours) Vital Signs Temp Pulse Resp BP Pulse Ox 05/14/20 07:00 36.6 C 74 16 110/76 100 05/13/20 23:40 36.4 C L 67 18 104/70 99 Laboratory Results Laboratory Results - last 24 hr 05/13/20 05/14/20 05/14/20 13:20 05:22 05:22 WBC 11.44 H RBC 3.52 L Hgb 10.8 L Hct 32.2 L MCV 91.5 MCH 30.7 MCHC 33.5 RDW Std Deviation 43.7 RDW Coeff of Artie 13.0 Plt Count 302 MPV 9.6 Immature Gran % (Auto) 0.3 Neut % (Auto) 79.4 Lymph % (Auto) 11.3 Craven % (Auto) 7.3 Eos % (Auto) 1.4 Baso % (Auto) 0.3 Neut # (Auto) 9.10 H Lymph # (Auto) 1.29 Craven # (Auto) 0.83 H Eos # (Auto) 0.16 Baso # (Auto) 0.03 Immature Gran # (Auto) 0.03 H Sodium 138 Potassium 4.0 Chloride 108 H Carbon Dioxide 24 Anion Gap 6.0 BUN 9 D Creatinine 0.49 L Est Cr Clr Drug Dosing 88.1 Est GFR ( Amer) 116.8 Est GFR (Non-Af Amer) 100.8 BUN/Creatinine Ratio 17.8 Glucose 65 L Calcium 8.3 L Total Bilirubin 0.3 AST 9 L ALT 16 Alkaline Phosphatase 81 Total Protein 5.4 L D Albumin 2.3 L Globulin 3.1 Albumin/Globulin Ratio 0.7 L Procalcitonin Nasal Screen MRSA (PCR) Positive A 05/14/20 09:32 WBC RBC Hgb Hct MCV MCH MCHC RDW Std Deviation RDW Coeff of Artie Plt Count MPV Immature Gran % (Auto) Neut % (Auto) Lymph % (Auto) Craven % (Auto) Eos % (Auto) Baso % (Auto) Neut # (Auto) Lymph # (Auto) Craven # (Auto) Eos # (Auto) Baso # (Auto) Immature Gran # (Auto) Sodium Potassium Chloride Carbon Dioxide Anion Gap BUN Creatinine Est Cr Clr Drug Dosing Est GFR ( Amer) Est GFR (Non-Af Amer) BUN/Creatinine Ratio Glucose Calcium Total Bilirubin AST ALT Alkaline Phosphatase Total Protein Albumin Globulin Albumin/Globulin Ratio Procalcitonin < 0.05 Nasal Screen MRSA (PCR) PG Care Time/CCT Total # of Minutes Spent Total Time Spent with Patient: Total time spent is greater than 50% in coordination of care (as documented) at patient's floor/unit and/or counseling patient: Coding Level of Care Code 02495 Subseq Hosp Care Lvl 3 Diagnoses COPD (chronic obstructive pulmonary disease) J44.1 COPD type: COPD with acute exacerbation Pneumonia J15.212 Pneumonia type: due to methicillin-resistant Staphylococcus aureus (MRSA) Laterality: bilateral Lung location: lower lobe of lung Chronic respiratory failure with hypoxia J96.11 Generalized weakness R53.1 Ambulatory dysfunction R26.2 Dehydration E86.0 Hypertension I10 Hypertension type: essential hypertension Anxiety with depression F41.8 Fall W19.XXXD Encounter type: subsequent encounter Hyponatremia E87.1 DVT prophylaxis Z29.9 (1) COPD (chronic obstructive pulmonary disease) COPD type: COPD with acute exacerbation Qualified Code(s): J44.1 - Chronic obstructive pulmonary disease with (acute) exacerbation (2) Hypertension Hypertension type: essential hypertension Qualified Code(s): I10 - Essential (primary) hypertension (3) Pneumonia Pneumonia type: due to methicillin-resistant Staphylococcus aureus (MRSA) Laterality: bilateral Lung location: lower lobe of lung Qualified Code(s): J15.212 - Pneumonia due to Methicillin resistant Staphylococcus aureus (4) Fall Encounter type: subsequent encounter Qualified Code(s): W19.XXXD - Unspecified fall, subsequent encounter
[2020-05-14 12:30] LABS: Influenza A virus by PCR Negative (Neg); Influenza B virus by PCR Negative (Neg); RSV by PCR Negative (Neg); SARS CoV2 RNA(COVID-19) InHosp NEGATIVE (Negative)
[2020-05-14] MEDS: cefTRIAXone SODIUM 1,000 MG in DEXTROSE 5% 50 ML IV SCH (13:03)
[2020-05-14] MEDS: guaiFENesin 600 MG TABCR PO SCH ×2 (13:04→20:37)
[2020-05-14] MEDS: LIDOCAINE 5% 1 PATCH TD SCH (13:04)
[2020-05-14] MEDS: dilTIAZem HCL 240 MG CAPCR PO SCH (16:45)
[2020-05-14] MEDS: methylPREDNISolone 30 MG in SYRINGE 0 ML IV SCH (18:25)
[2020-05-14] MEDS: ALBUT/IPRATROP 3MG/0.5MG NEB 3 ML VIAL NEB SCH (19:27)
[2020-05-14] MEDS: PARoxetine HCL 10 MG TAB PO SCH (20:37)
[2020-05-15] MEDS ORDERED: VANCOMYCIN TROUGH ONE (03:30)
[2020-05-15 03:48] LABS: Hematocrit (blood only) 34.1 % (37-47); Hemoglobin 11.7 g/dL (12.0-16.0); Mean Corpuscular Hgb Conc 34.3 g/dL (32-36); Mean Corpuscular Volume 90.5 fL (80-100); Mean Platelet Volume 9.4 fL (7.4-10.4); Platelet Count 303 K/uL (130-400); RDW Coefficient of Variation 12.9 % (11.5-14.5); RDW Standard Deviation 42.9 fL (36.4-46.3); Red Blood Count 3.77 M/uL (4.2-5.4)
[2020-05-15] MEDS: VANCOMYCIN HCL 750 MG in SODIUM CHLORIDE 0.9% 250 ML IV SCH (03:55)
[2020-05-15 04:13] LABS: Creatinine Clr Calc Pharmacy 50.8 ml/min; Est GFR (African American) 82.2; Est GFR (Non-African American) 70.9
[2020-05-15] MEDS: methylPREDNISolone 30 MG in SYRINGE 0 ML IV SCH ×2 (05:16→17:10)
[2020-05-15 06:34] LABS: BUN Creatinine Ratio 23.7 (10-20); Calcium 8.2 mg/dl (8.5-10.1); Creatinine Clr Calc Pharmacy 50.8 ml/min; Est GFR (African American) 82.2; Est GFR (Non-African American) 70.9; Potassium 4.8 mmol/L (3.5-5.1)
[2020-05-15] MEDS: ALBUT/IPRATROP 3MG/0.5MG NEB 3 ML VIAL NEB SCH ×3 (07:41→15:28)
[2020-05-15] MEDS: HEPARIN SOD 5,000 UNIT/0.5 ML VIAL SQ SCH ×2 (09:08→20:28)
[2020-05-15] MEDS: MUPIROCIN 2% OINT 22 GM TUBE EXT SCH ×2 (09:08→20:28)
[2020-05-15] MEDS: IRBESARTAN 150 MG TAB PO SCH (09:08)
[2020-05-15] MEDS: FLUTICASONE/VILANTEROL 200/25MCG 14 PUFFS/INHALER INH SCH (09:08)
[2020-05-15] MEDS: UMECLIDINIUM BROMIDE 62.5MCG/BLISTER 7 PUFFS/INHALER INH SCH (09:08)
[2020-05-15] MEDS: SPIRONOLACTONE 25 MG TAB PO SCH (09:08)
[2020-05-15] MEDS: LIDOCAINE 5% 1 PATCH TD SCH (09:08)
[2020-05-15] MEDS: clonazePAM 0.25 MG TAB PO SCH ×3 (09:08→20:26)
[2020-05-15] MEDS: AZITHROMYCIN 250 MG in DEXTROSE 5% 250 ML IV SCH (09:09)
[2020-05-15] MEDS: ATENOLOL 50 MG TABLET PO SCH (09:09)
[2020-05-15] MEDS: guaiFENesin 600 MG TABCR PO SCH ×2 (09:09→20:27)
[2020-05-15] MEDS: CYANOCOBALAMIN 500 MCG TABLET (VITAMIN B-12) PO SCH (09:09)
--- NOTE | 2020-05-15 09:36 | Pharmacy Report ---
Pharmacy Abx Dose Short Note - Date of Service May 15, 2020 - Assessment & Plan Assessment 65 year old F receiving vancomycin, rocephin and azithromycin for possible pneumonia Day # 3 of antimicrobial therapy. Plan Vancomycin * Trough level came back therapeutic at ~18.5 mcg/m (goal 15-20 mcg/ml). Level drawn before steady state, therefore anticipate true level to be closer to ~20 mcg/ml or above * Scr trending upward 0.49 mg/dL to 0.85 mg/dL. Will plan to adjust vancomycin dosing slightly to hopefully avoid supratherapeutic level, will decrease to vancomycin 500 mg iv q 12 hrs * Plan to order another trough level in another 48hrs or sooner if renal funct ion changes Pharmacy will continue to follow and will adjust dose/frequency as necessary. Thank you.
[2020-05-15] MEDS ORDERED: FOLIC ACID 1 MG in SYRINGE 9.8 ML IV ONE (10:30)
[2020-05-15] MEDS: cefTRIAXone SODIUM 1,000 MG in DEXTROSE 5% 50 ML IV SCH (13:24)
[2020-05-15] MEDS: dilTIAZem HCL 240 MG CAPCR PO SCH (15:12)
[2020-05-15] MEDS: VANCOMYCIN HCL 500 MG in 0.9 % SODIUM CHLORIDE 100 ML IV SCH (17:11)
[2020-05-15] MEDS: ALBUTEROL HFA 8 GM INHALER INH SCH (19:36)
--- NOTE | 2020-05-15 20:27 | Hospitalist Progress Note ---
Date of Service May 15, 2020 Assessment & Plan (1) COPD (chronic obstructive pulmonary disease): With exacerbation, in the setting of probable b/l basilar pneumonia. Wheezing mildly improved today. Cont solumedrol 30mg IV BID along with scheduled bronchodilators. No wean on steroids today. Cont home inhalers. Pulm toilet. Initial COVID neg at admission. Repeat COVID negative. Flu/RSV negative. (2) Pneumonia: b/l basilar on most recent cxr. procal checked - negative. [id number] is at risk of bacterial process and MRSA swab is +. pneumonia could be 2nd to MRSA. could be community-acquired. cont rocephin/zithromax for CAP coverage. day #3. cont vanco for MRSA coverage. day #2. supportive care. COVID neg x 2. (3) Chronic respiratory failure with hypoxia: on continuous home O2, 2-3 L. 2nd to COPD. previous tobacco use - quit for many years. (4) Generalized weakness: Admitted for generalized weakness/ambulatory dysfunction/frequent falls in setting of poor intake and lack of self care. Son called EMS as patient unable to care for herself. Lives with roommate who was recently on a 302 petition - this is pt's main source of help at her home. Roommate also with MRSA infection or carriage. Weakness may have been 2nd to developing pneumonia. Low NA/dehydration, B12 def, etc also could have contributed to weakness. PT, OT. Needs rehab. (5) Ambulatory dysfunction: See above B12 def could be contributing as well (6) Dehydration: Resolved w/ IVF (7) Hypertension: Continue diltiazem, atenolol, and aldactone along with ARB. Controlled. (8) Anxiety with depression: Continue clonazepam and paroxetine (9) Fall: POA. Facial bruising, left shoulder bruising - but no fractures fortunately. Hyponatremia, B12 def, pneumonia - all may have contributed to fall risk. PT, OT. (10) Hyponatremia: Resolved w/ IVF. BMP am for stability. (11) B12 deficiency: 1000mcg B12 daily (12) Folate deficiency: 1mg folic acid daily x 1 month (13) Tinea unguium: podiatry consult is in place. patient requesting toenail care/clipping. (14) Severe protein-calorie malnutrition: Copioius weight loss over last year. ?50 pounds? needs w/u and cancer screenings once out of hospital. (15) DVT prophylaxis: Heparin 5000 BID. Dispo planning - needs rehab post-discharge. Admission and Anticipated Discharge Date Admission Date: May 12, 2020 Subjective patient talking on telephone when I first came into the room. after hanging up she reported that her right arm was sore. an IV infiltrated earlier today. I helped prop her right arm up on a pillow and asked nursing staff to get her warm packs. she continues with mild cough and mild wheezing. eating fair. she reports very poor appetite chronically at home, and has lost 50+ pounds in the last year?? finally, she asked "can I stay another day?" (she asked the same question yesterday) Review of Systems Constitutional: no fever and no chills Cardiovascular: no chest pain Gastrointestinal: no diarrhea/loose stools Physical Exam Constitutional: no acute distress and no altered mental status looks older than stated age ENMT: external ear and nose normal, oropharynx normal Respiratory: no respiratory distress Auscultation: + rales and + wheezes Cardiovascular: Rate/Rhythm: regular rate and regular rhythm Heart Sounds: normal S1 and normal S2; no murmur Vessels: no JVD Extremities: no edema heart sounds are very distant Gastrointestinal (Abdomen): normal bowel sounds, soft, nontender, no hepato splenomegaly Skin: ecchymoses over eyes, left shoulder; IV infiltration right arm with mild edema Psychiatric: Orientation: alert Results & Data Results & Data ([facility]) Vital Signs (Past 12 Hours) Vital Signs Temp Pulse Resp BP Pulse Ox 05/15/20 19:38 79 16 98 05/15/20 15:28 83 18 98 05/15/20 15:07 36.8 C 76 18 98/63 L 95 05/15/20 11:50 70 18 96 Laboratory Results Laboratory Results - last 24 hr 05/15/20 05/15/20 05/15/20 03:39 03:39 03:39 WBC 10.70 RBC 3.77 L Hgb 11.7 L Hct 34.1 L MCV 90.5 MCH 31.0 MCHC 34.3 RDW Std Deviation 42.9 RDW Coeff of Artie 12.9 Plt Count 303 MPV 9.4 Sodium Potassium Chloride Carbon Dioxide Anion Gap BUN Creatinine 0.85 D Est Cr Clr Drug Dosing 50.8 Est GFR ( Amer) 82.2 Est GFR (Non-Af Amer) 70.9 BUN/Creatinine Ratio Glucose Calcium Magnesium Folate Vancomycin Trough 18.5 05/15/20 05/15/20 04:53 04:53 WBC RBC Hgb Hct MCV MCH MCHC RDW Std Deviation RDW Coeff of Artie Plt Count MPV Sodium 136 Potassium 4.8 D Chloride 107 Carbon Dioxide 24 Anion Gap 5.0 BUN 20 H D Creatinine 0.85 Est Cr Clr Drug Dosing 50.8 Est GFR ( Amer) 82.2 Est GFR (Non-Af Amer) 70.9 BUN/Creatinine Ratio 23.7 H Glucose 97 Calcium 8.2 L Magnesium 2.0 Folate 3.80 L Vancomycin Trough PG Care Time/CCT Total # of Minutes Spent Total Time Spent with Patient: Total time spent is greater than 50% in coordination of care (as documented) at patient's floor/unit and/or counseling patient: Coding Level of Care Code 28721 Subseq Hosp Care Lvl 2 Diagnoses COPD (chronic obstructive pulmonary disease) J44.1 COPD type: COPD with acute exacerbation Pneumonia J15.212 Laterality: bilateral Lung location: lower lobe of lung Pneumonia type: due to methicillin-resistant Staphylococcus aureus (MRSA) Chronic respiratory failure with hypoxia J96.11 Generalized weakness R53.1 Ambulatory dysfunction R26.2 Dehydration E86.0 Hypertension I10 Hypertension type: essential hypertension Anxiety with depression F41.8 Fall W19.XXXD Encounter type: subsequent encounter Hyponatremia E87.1 B12 deficiency E53.8 Folate deficiency E53.8 Tinea unguium B35.1 Severe protein-calorie malnutrition E43 DVT prophylaxis Z29.9 (1) COPD (chronic obstructive pulmonary disease) COPD type: COPD with acute exacerbation Qualified Code(s): J44.1 - Chronic obstructive pulmonary disease with (acute) exacerbation (2) Hypertension Hypertension type: essential hypertension Qualified Code(s): I10 - Essential (primary) hypertension (3) Pneumonia Laterality: bilateral Lung location: lower lobe of lung Pneumonia type: due to methicillin-resistant Staphylococcus aureus (MRSA) Qualified Code(s): J15.212 - Pneumonia due to Methicillin resistant Staphylococcus aureus (4) Fall Encounter type: subsequent encounter Qualified Code(s): W19.XXXD - Unspecified fall, subsequent encounter
[2020-05-15] MEDS: PARoxetine HCL 10 MG TAB PO SCH (20:28)
[2020-05-16] MEDS: VANCOMYCIN HCL 500 MG in 0.9 % SODIUM CHLORIDE 100 ML IV SCH ×2 (06:06→20:17)
[2020-05-16] MEDS: methylPREDNISolone 30 MG in SYRINGE 0 ML IV SCH (06:07)
[2020-05-16] MEDS: ALBUTEROL HFA 8 GM INHALER INH SCH ×4 (07:53→19:08)
[2020-05-16 08:00] LABS: Creatinine Clr Calc Pharmacy 45.9 ml/min; Est GFR (African American) 72.8; Est GFR (Non-African American) 62.8
[2020-05-16] MEDS: UMECLIDINIUM BROMIDE 62.5MCG/BLISTER 7 PUFFS/INHALER INH SCH (08:44)
[2020-05-16] MEDS: FLUTICASONE/VILANTEROL 200/25MCG 14 PUFFS/INHALER INH SCH (08:44)
[2020-05-16] MEDS: clonazePAM 0.25 MG TAB PO SCH ×3 (08:45→21:17)
[2020-05-16] MEDS: IRBESARTAN 150 MG TAB PO SCH (08:45)
[2020-05-16] MEDS: MUPIROCIN 2% OINT 22 GM TUBE EXT SCH ×2 (08:45→21:17)
[2020-05-16] MEDS: FOLIC ACID 1 MG in SYRINGE 9.8 ML IV SCH (08:45)
[2020-05-16] MEDS: HEPARIN SOD 5,000 UNIT/0.5 ML VIAL SQ SCH ×2 (08:45→21:16)
[2020-05-16] MEDS: guaiFENesin 600 MG TABCR PO SCH ×2 (08:46→21:18)
[2020-05-16] MEDS: ATENOLOL 50 MG TABLET PO SCH (08:46)
[2020-05-16] MEDS: CYANOCOBALAMIN 500 MCG TABLET (VITAMIN B-12) PO SCH (08:46)
[2020-05-16] MEDS: dilTIAZem HCL 240 MG CAPCR PO SCH (08:46)
[2020-05-16] MEDS: SPIRONOLACTONE 25 MG TAB PO SCH (08:47)
[2020-05-16] MEDS: AZITHROMYCIN 250 MG in DEXTROSE 5% 250 ML IV SCH (08:47)
[2020-05-16] MEDS: LIDOCAINE 5% 1 PATCH TD SCH (08:47)
--- NOTE | 2020-05-16 10:41 | Podiatry Consultation ---
Date of Consultation May 16, 2020 Assessment & Plan (1) Tinea unguium: History of Present Illness Attending Physician: Hero Sheppard MD Patient seen at bedside today for toenail debridement, it appeared as though she has not had care to her feet for years, she was very pleasant, somewhat of a poor historian but agreeable to toenail care today. Allergies Allergy/AdvReac Type Severity Reaction Status Date / Time No Known Allergies Allergy Unverified 05/11/20 15:30 Home Medications Medication Instructions Recorded Confirmed Type albuterol sulfate [Ventolin HFA] 2 puff INHALATION Q6 PRN 05/11/20 05/11/20 History clonazepam [Klonopin] 0.25 mg PO TID 05/11/20 05/11/20 History diltiazem HCl 240 mg PO DAILY 05/11/20 05/11/20 History fluticasone furoate-vilanterol 1 ea INHALATION DAILY 05/11/20 05/11/20 History [Breo Ellipta] irbesartan 150 mg PO DAILY 05/11/20 05/11/20 History paroxetine HCl 10 mg PO HS 05/11/20 05/11/20 History spironolactone 25 mg PO DAILY 05/11/20 05/11/20 History tiotropium bromide [Spiriva 2 puff INHALATION QAM 05/11/20 05/11/20 History Respimat] Patient History Medical History Anxiety with depression COPD (chronic obstructive pulmonary disease) Hypertension Social History Smoking Status: Former smoker Hx Alcohol Use: No Hx Substance Use: No Preferred Language: [place] Communication Ability: Effective 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 DP pulse palpable 1 out of 4, PT non palpable bilaterally patient had pads to help keep pressure of her heels otherwise skin was clean/dry/intact with no openings nails debrided with nail nippers to tolerance, no bleeding or paronychia present Results & Data ([facility]) Vital Signs (Past 12 Hours) Vital Signs Temp Pulse Resp BP BP Pulse Ox 05/16/20 07:53 72 16 100 05/16/20 07:03 36.6 C 82 16 126/80 100 05/15/20 22:52 37.0 C 84 16 99/68 L 98
--- NOTE | 2020-05-16 13:29 | XRay Report ---
XR chest 2V PA/lateral HISTORY: 65 years-old Female pneumonia acute shortness of breath with pneumonia COMPARISON: Chest radiograph 05/13/2020 TECHNIQUE: PA and lateral views of the chest FINDINGS: Cardiomediastinal and hilar silhouettes are unchanged. Emphysema with hyperinflation and chronic inte rstitial coarsening. Progressive interstitial opacities of the left lung with hazy ill-defined bibasi lar densities. Trace pleural effusions. No pneumothorax or overt pulmonary edema. Degenerative change s of the shoulders and spine. IMPRESSION: 1. Persistent ill-defined bibasilar densities with progressive interstitial coarsening throughout the left lung suggestive of an ongoing infectious or inflammatory pneumonitis. 2. Emphysema. 3. Trace pleural effusions. ACT 112: Negative or not required by law. The above report was generated using voice recognition software. It may contain grammatical, syntax o r spelling errors. Electronically signed by: Cesar Keen M.D. 05/16/2020 1:28 PM
--- NOTE | 2020-05-16 14:09 | Hospitalist Progress Note ---
Date of Service May 16, 2020 Assessment & Plan (1) COPD (chronic obstructive pulmonary disease): With exacerbation, in the setting of bilateral basilar pneumonia. Steroid therapy uptitrated today, Feb 3, for continued wheezing. Scheduled bronchodilators. Cont home inhalers. Pulm toilet. Initial COVID neg at admission. Repeat COVID negative. Flu/RSV negative. (2) Pneumonia: Repeat chest x-ray today, Feb 3, actually shows progression of inf iltrates. procal checked - negative. [id number] is at risk of bacterial process and MRSA swab is +. pneumonia could be 2nd to MRSA. could be community-acquired. cont rocephin/zithromax for CAP coverage. day #4. cont vanco for MRSA coverage. day #3. supportive care. COVID neg x 2. (3) Chronic respiratory failure with hypoxia: on continuous home O2, 2-3 L. Fortunately, oxygen requirements have not increased previous tobacco use - quit for many years. (4) Generalized weakness: Admitted for generalized weakness/ambulatory dysfunction/frequent falls in setting of poor intake and lack of self care. Son called EMS as patient unable to care for herself. Lives with roommate who was recently on a 302 petition - this is pt's main source of help at her home. Roommate also with MRSA infection or carriage. Weakness due to deconditioning and pneumonia PT, OT. Needs rehab. (5) Ambulatory dysfunction: See above B12 def could be contributing as well (6) Dehydration: Resolved w/ IVF (7) Hypertension: Continue diltiazem, atenolol, and aldactone along with ARB. Controlled. (8) Anxiety with depression: Continue clonazepam and paroxetine (9) Fall: POA. Facial bruising, left shoulder bruising - but no fractures fortunately. Hyponatremia, B12 def, pneumonia - all may have contributed to fall risk. PT, OT. (10) Hyponatremia: Resolved w/ IVF. Serial lab studies. (11) B12 deficiency: 1000mcg B12 daily (12) Folate deficiency: 1mg folic acid daily x 1 month (13) Tinea unguium: podiatry consult appreciated patient requesting toenail care/clipping. (14) Severe protein-calorie malnutrition: Significant weight loss over last year. needs w/u and cancer screenings once out of hospital. (15) DVT prophylaxis: Heparin 5000 BID. Dispo planning -discharge to [facility] when stable. Hopefully yet this week Admission and Anticipated Discharge Date Admission Date: May 12, 2020 Subjective Still quite wheezy. Solu-Medrol uptitrated today. Chest x-ray appearance today actually looks somewhat worse although oxygenation is satisfactory on 2 L. She has been accepted to [facility] which will be her discharge destination. Review of Systems Review of Systems: Constitutional-no fever or chills ENT-no blurred vision, no double vision, no epistaxis, no sore throat Respiratory-no cough. Wheezing at rest. Easily short of breath with any exertion Cardiac-no palpitations, no chest pain, no syncope GI-no nausea, vomiting, diarrhea, melena, hematochezia -no urinary retention, no urinary incontinence, no dysuria, no hematuria Musculoskeletal-no joint pain, no muscle tenderness Skin-no bruising, no rashes, no pruritus Neuro-no isolated weakness, no paresthesia, no weakness Psych-no depression, no anxiety Physical Exam Physical Exam: General-alert and oriented x3, no fevers, no chills HEENT-head atraumatic and normocephalic, TMs intact bilaterally, pupils equal and reactive to light, extraocular muscles intact Neck-no lymphadenopathy or thyromegaly, trachea midline Chest-markedly diminished breath sounds bilaterally. Bilateral expiratory wheezes. Midline rhonchi. No inspiratory rales Cardiac-regular rate and rhythm, normal S1 and S2, no murmurs Abdomen-normal bowel sounds, nontender, no hepatosplenomegaly Extremities-no cyanosis, clubbing, or edema Neuro-cranial nerves II through XII intact, motor and sensory function within normal limits, strength symmetrical 5/5, no focal deficits Psych-normal affect, normal mood Results & Data Results & Data ([facility]) Vital Signs (Past 12 Hours) Vital Signs Temp Pulse Resp BP Pulse Ox 05/16/20 11:52 78 18 99 05/16/20 07:53 72 16 100 05/16/20 07:03 36.6 C 82 16 126/80 100 Laboratory Results 05/15/20 03:39 05/16/20 06:59 PG Care Time/CCT Total # of Minutes Spent Total Time Spent with Patient: Total time spent is greater than 50% in coordination of care (as documented) at patient's floor/unit and/or counseling patient: Coding Level of Care Code 68933 Subseq Hosp Care Lvl 3 Diagnoses COPD (chronic obstructive pulmonary disease) J44.1 COPD type: COPD with acute exacerbation Pneumonia J15.212 Pneumonia type: due to methicillin-resistant Staphylococcus aureus (MRSA) Laterality: bilateral Lung location: lower lobe of lung Chronic respiratory failure with hypoxia J96.11 Generalized weakness R53.1 Ambulatory dysfunction R26.2 Dehydration E86.0 Hypertension I10 Hypertension type: essential hypertension Anxiety with depression F41.8 Fall W19.XXXD Encounter type: subsequent encounter Hyponatremia E87.1 B12 deficiency E53.8 Folate deficiency E53.8 Tinea unguium B35.1 Severe protein-calorie malnutrition E43 DVT prophylaxis Z29.9 (1) COPD (chronic obstructive pulmonary disease) COPD type: COPD with acute exacerbation Qualified Code(s): J44.1 - Chronic obstructive pulmonary disease with (acute) exacerbation (2) Pneumonia Pneumonia type: due to methicillin-resistant Staphylococcus aureus (MRSA) Laterality: bilateral Lung location: lower lobe of lung Qualified Code(s): J15.212 - Pneumonia due to Methicillin resistant Staphylococcus aureus (3) Hypertension Hypertension type: essential hypertension Qualified Code(s): I10 - Essential (primary) hypertension (4) Fall Encounter type: subsequent encounter Qualified Code(s): W19.XXXD - Unspecified fall, subsequent encounter
[2020-05-16] MEDS: cefTRIAXone SODIUM 1,000 MG in DEXTROSE 5% 50 ML IV SCH (14:17)
[2020-05-16] MEDS: methylPREDNISolone 40 MG in SYRINGE 0 ML IV SCH ×2 (14:17→21:21)
[2020-05-16] MEDS: PARoxetine HCL 10 MG TAB PO SCH (21:19)
[2020-05-17] MEDS ORDERED: VANCOMYCIN TROUGH ONE (05:30)
[2020-05-17] MEDS: methylPREDNISolone 40 MG in SYRINGE 0 ML IV SCH (06:28)
[2020-05-17] MEDS: ALBUTEROL HFA 8 GM INHALER INH SCH ×2 (07:15→11:37)
[2020-05-17 07:19] LABS: Est GFR (African American) 84.6
[2020-05-17] MEDS ORDERED: VANCOMYCIN HCL 500 MG in 0.9 % SODIUM CHLORIDE 100 ML IV SCH (08:00)
[2020-05-17] MEDS: MUPIROCIN 2% OINT 22 GM TUBE EXT SCH (08:50)
[2020-05-17] MEDS: AZITHROMYCIN 250 MG in DEXTROSE 5% 250 ML IV SCH (08:50)
[2020-05-17] MEDS: FLUTICASONE/VILANTEROL 200/25MCG 14 PUFFS/INHALER INH SCH (08:51)
[2020-05-17] MEDS: HEPARIN SOD 5,000 UNIT/0.5 ML VIAL SQ SCH (08:51)
[2020-05-17] MEDS: clonazePAM 0.25 MG TAB PO SCH (08:51)
[2020-05-17] MEDS: LIDOCAINE 5% 1 PATCH TD SCH (08:51)
[2020-05-17] MEDS: guaiFENesin 600 MG TABCR PO SCH (08:51)
[2020-05-17] MEDS: SPIRONOLACTONE 25 MG TAB PO SCH (08:51)
[2020-05-17] MEDS: ATENOLOL 50 MG TABLET PO SCH (08:51)
[2020-05-17] MEDS: CYANOCOBALAMIN 500 MCG TABLET (VITAMIN B-12) PO SCH (08:51)
[2020-05-17] MEDS: IRBESARTAN 150 MG TAB PO SCH (08:51)
[2020-05-17] MEDS: UMECLIDINIUM BROMIDE 62.5MCG/BLISTER 7 PUFFS/INHALER INH SCH (08:51)
[2020-05-17] MEDS: dilTIAZem HCL 240 MG CAPCR PO SCH (08:51)
[2020-05-17] MEDS: FOLIC ACID 1 MG in SYRINGE 9.8 ML IV SCH (08:52)
--- NOTE | 2020-05-17 10:11 | Discharge Summary ---
Date of Service May 17, 2020 Admission HPI Per Admitting Provider The patient is a 65-year-old female with a past medical history including anxiety, hypertension, COPD, and depression who presents to the ED with symptoms as noted above. She denies any history of head trauma or any specific joint injuries with her frequent falls. Work-up in the emergency department including CT scans of head, face and cervical spine all of which were negative. Chest x-ray is consistent with COPD and mild bibasilar interstitial lung disease. Principal Diagnosis Bilateral pneumonia, exac COPD Discharge Exam Constitutional + ill appearing Eyes PERRL, conjunctivae normal, anicteric sclerae ENMT external ear and nose normal, oropharynx normal Neck trachea midline, no thyromegaly Respiratory Auscultation: + diminished lung sounds and + wheezes fint bilteral end-exp wheezes Cardiovascular RRR, no murmur, no edema Gastrointestinal (Abdomen) normal bowel sounds, soft, nontender, no hepatosplenomegaly Musculoskeletal generalized weakness Skin scattered ecchymoses Neurologic CN's II-XI intact bilaterally Psychiatric A+Ox3, euthymic affect Discharge Data Allergies Allergy/AdvReac Type Severity Reaction Status Date / Time No Known Allergies Allergy Unverified 05/11/20 15:30 Consultations 05/11/20 17:32 ED Decision to Admit Stat 05/13/20 11:41 Consult Health Information Management Routine 05/13/20 12:45 Consult Podiatry Routine Ordered Studies 05/11/20 13:59 CT cervical spine wo con Stat CT facial bones wo con Stat CT head/brain wo con Stat Hospital Course (1) COPD (chronic obstructive pulmonary disease): With exacerbation, in the setting of bilateral basilar pneumonia. Steroid therapy uptitrated Feb 3, for continued wheezing. Improved now. Prednisone taper at discharge. Scheduled bronchodilators. Cont home inhalers. Pulm toilet. Initial COVID neg at admission. Repeat COVID negative. Flu/RSV negative. (2) Pneumonia: Repeat chest x-ray Feb 3, actually shows progression of infiltrates. However, clinically improved. O2 requirements are at baseline. procal checked - negative. MRSA swab is +. Treted with rocephin/zithromax for CAP coverage. day #5 Treated with vanco for MRSA coverage. day #4. supportive care. COVID neg x 2. (3) Chronic respiratory failure with hypoxia: on continuous home O2, 2-3 L. Fortunately, oxygen requirements have not increased previous tobacco use - quit for many years. (4) Generalized weakness: Admitted for generalized weakness/ambulatory dysfunction/frequent falls in setting of poor intake and lack of self care. Son called EMS as patient unable to care for herself. Lives with roommate who was recently on a 302 petition - this is pt's main source of help at her home. Roommate also with MRSA infection or carriage. Weakness due to deconditioning and pneumonia PT, OT. Needs rehab at discharge. (5) Ambulatory dysfunction: B12 def could be contributing as well (6) Dehydration: Resolved w/ IVF (7) Hypertension: Continue diltiazem, atenolol, and aldactone along with ARB. Controlled. (8) Anxiety with depression: Continue clonazepam and paroxetine (9) Fall: POA. Facial bruising, left shoulder bruising - but no fractures fortunately. Hyponatremia, B12 def, pneumonia - all may have contributed to fall risk. PT, OT. (10) Hyponatremia: Resolved w/ IVF. Serial lab studies. (11) B12 deficiency: 1000mcg B12 daily (12) Folate deficiency: 1mg folic acid daily x 1 month (13) Tinea unguium: podiatry consult appreciated patient requested toenail care/clipping. (14) Severe protein-calorie malnutrition: Significant weight loss over last year. needs w/u and cancer screenings once out of hospital. (15) DVT prophylaxis: Heparin 5000 BID. Dispo planning -discharge to [facility] today, 2/4 Total Time Total Time Spent Total Time Spent (In Minutes): 35 minutes Total Time Includes: Examination of the Patient, Discharge Planning and Medication Reconciliation Discharge Plan Discharge Items Reason For Visit: FREQUENT FALLS, GENERALIZED WEAKNESS Follow-up/Referrals: PCP,NO [Primary Care Provider] - Medications and DC Order Prescriptions: No Action paroxetine HCl 10 mg tablet 10 mg PO HS RF: 0 diltiazem HCl 240 mg capsule,extended release 24hr 240 mg PO DAILY RF: 0 clonazepam [Klonopin] 0.5 mg tablet 0.25 mg PO TID RF: 0 spironolactone 25 mg tablet 25 mg PO DAILY RF: 0 irbesartan 150 mg tablet 150 mg PO DAILY RF: 0 albuterol sulfate [Ventolin HFA] 90 mcg/actuation HFA aerosol inhaler 2 puff INHALATION Q6 PRN (Reason: Shortness Of Breath Or Wheezing) RF: 0 Spiriva Respimat 2.5 mcg/actuation mist 2 puff INHALATION QAM RF: 0 Breo Ellipta 200-25 mcg/dose blister with device 1 ea INHALATION DAILY RF: 0 Admission Data Admit Date/Time: 05/12/20 15:49 Attending Provider: Hero Sheppard Admit Provider: Riley David Primary Care Provider: PCP,NO Other Providers: [facility] ; [email or web address] ; [facility] ; [facility] ; Yanet Chen Coding Level of Care Code D/C Day Management >30 mins Diagnoses COPD (chronic obstructive pulmonary disease) J44.1 COPD type: COPD with acute exacerbation Pneumonia J15.212 Pneumonia type: due to methicillin-resistant Staphylococcus aureus (MRSA) Laterality: bilateral Lung location: lower lobe of lung Chronic respiratory failure with hypoxia J96.11 Generalized weakness R53.1 Ambulatory dysfunction R26.2 Dehydration E86.0 Hypertension I10 Hypertension type: essential hypertension Anxiety with depression F41.8 Fall [id number].XXXD Encounter type: subsequent encounter Hyponatremia E87.1 B12 deficiency E53.8 Folate deficiency E53.8 Tinea unguium B35.1 Severe protein-calorie malnutrition E43 DVT prophylaxis Z29.9
[2020-05-18] MEDS ORDERED: FOLIC ACID 1 MG TAB PO SCH (09:00)
== END 2020-05-17 13:14 | DRG 177 ==
LOC: EDBD → 3W 13:41 → ED 13:41 → SUATTDRO 22:10 → 3W 23:20 → SUATTDRO 05-12 15:49